=== PATIENT | female | born 1945 | race Caucasian/White ===

== ENCOUNTER → 2022-12-31 09:44 | Outpatient (CLI) | payer MEDICARE, SELFPAY ==
[2022-12-31 10:55] VITALS: PULSE 75; PULSE 80
== END ==
PROVIDERS: PCP Internal Medicine Adolescent Medicine; Visit Provider Internal Medicine Pulmonary Disease
DX: R06.09 Other forms of dyspnea (principal)
CPT/HCPCS: 94060; 94618; 94640; 94726; 94729

== ENCOUNTER 2023-01-24 11:50 | Day surgery (SDC) | payer MEDICARE, SELFPAY ==
--- NOTE | 2023-01-11 08:15 | SUR.PREOP ---
Ashli @ Dr Pete office spoke with Dr muro/t holding plavix. Per Ashli he stated to hold Plavix 5 days prior to procedure and 2 days after
[2023-01-11 10:40] VITALS: BMI 41.2
[2023-01-24 12:50] VITALS: BP 158/58; PULSE 84; RESP 18; TEMP 36.2; O2SAT 96
[2023-01-24 12:59] LABS: POC Glucose,Bedside 94 (70-110)
[2023-01-24 13:06] VITALS: O2SAT 96
--- NOTE | 2023-01-24 13:30 | HMH.SCOPE ---
Procedure: Date: 01/24/23 Patient Date of :: 1945 Procedure Performed:: Colonoscopy with polypectomy Indications:: Colon cancer screening Performing Provider:: Chintan Cantor MD Referring Provider:: Santiago Youssef Sedation:: Propofol Procedure:: After placing the patient in the left lateral decubitus position, the colonoscopy was gently inserted into the rectum and under direct visualization advanced to the cecum which was identified by transillumination in the right lower quadrant, identification of the ileocecal valve, appendiceal orifice, and cecal strap. Color, texture, mucosa, and anatomy of the colon were carefully examined with the scope. Findings:: Anal canal: normal Rectum: Two small 0.3 cm mucosal polyp identified and removed with snare Sigmoid colon: normal without polyps or inflammatory changes Descending colon: normal without polyps or inflammatory changes Splenic flexure: normal Transverse colon: normal without polyps or inflammatory changes Hepatic flexure: normal Ascending colon: normal without polyps or inflammatory changes Cecum: normal Terminal ileum: not visualized Impression: Rectal polyps x 2 Specimens:: Polyps of rectum Recommendations:: Follow up examination in about FIVE years or so, sooner if clinically indicated. Complications:: None Estimated blood obtained (mL): 0 Colonoscopy Component Colonoscopy Component Was a colonoscopy performed during today's procedure?: Yes Recommended follow up colonoscopy of at least 10 years?: No If no, follow up colonoscopy recommended in ___ years?: Five Reason for not recommending >/= 10 yr follow-up interval?: Polyps found
[2023-01-24 13:38] VITALS: BP 94/49; PULSE 86; RESP 16; TEMP 36.1; O2SAT 95
[2023-01-24 13:48] VITALS: BP 138/59; PULSE 85; RESP 17; O2SAT 94
[2023-01-24 13:58] VITALS: BP 130/64; PULSE 86; RESP 17; O2SAT 95
[2023-01-24 14:08] VITALS: BP 127/84; PULSE 85; RESP 17; O2SAT 94
--- NOTE | 2023-01-24 14:10 | EXP.ANES.CKL ---
[facility] Disclaimer: The information contained in this section may have been updated after the patient was seen, as this information can be updated by other users. Medical History Dyspnea on exertion History of COPD History of smoking 30 or more pack years History of transient ischemic attack (TIA) Surgical History (Updated 01/11/23 @ 10:32 by Lizzie Thorne RN) History of cholecystectomy History of colonoscopy History of knee replacement History of left hip replacement History of surgery on lower extremity History of tonsillectomy History of tubal ligation Family History Other Breast cancer in female Diabetes Hypertension Social History Smoking Status: Former smoker smoking status stop date: 2007 alcohol intake: never substance use type: denies use current occupational status: retired Travel in the last 8 weeks: [place] household members: family housing: house lives independently: No education level: high school service: No retirement: No caffeine: Yes special chepe needs: No agree to transfusion: No do you feel safe at home: Yes victim of physical abuse: No victim of emotional abuse: No victim of sexual abuse: No would you like helpful sources: No [facility] Anesthesia Checklist Patient Identification Patient Identification: Arm Band and Family Structural Data Admitted From: Home Planned Operative Procedure/s: colonoscopy Consent for Planned Operative Procedure(s) Verified: Yes Verified Documents: Surgical Consent and History and Physical NPO Status Verified Time NPO: 00:00 Additional verifications Patient : No Anesthesia Reactions: No Hx Blood Transfusions: No Blood Transfusion Reaction: No Cephalosporin Allergy: No Previous Colonoscopy: Yes Airway Assessment Mallampati Score:: Class II C-Spine Mobility Assessed: Yes TMJ Mobility Assessed: Yes Dentition: Good Dentition Neurological Assessment Level of Consciousness: Awake, Alert, Appropriate and Follows Commands Hx Seizures: No Numbness or tingling in extremities: No Anesthesia Plan Anesthesia Risk discussed: Yes ASA Class: III Anesthesia Type: MAC Preoperative Comments Pre-Operative Comments: Hypothyroid. COPD. Hypertension. History of Kidney stones. Diabetes.
== END 2023-01-24 14:20 | disposition home or self-care (01) ==
PROVIDERS: PCP Internal Medicine Adolescent Medicine; Visit Provider Internal Medicine Gastroenterology
PROC: 0DJD8ZZ Inspection of Lower Intestinal Tract, Via Natural or Artificial Opening Endoscopic (ICD-10-PCS; CPT 45378; principal; 2023-01-24 13:00)
DX: Z12.11 Encounter for screening for malignant neoplasm of colon (principal); D12.8 Benign neoplasm of rectum; E11.9 Type 2 diabetes mellitus without complications
CPT/HCPCS: 45385; 82962; 88305

== ENCOUNTER → 2023-02-14 12:03 | Outpatient (CLI) | payer MEDICARE, SELFPAY ==
--- NOTE | 2023-02-14 12:06 | XR_ITS ---
FINAL REPORT CLINICAL HISTORY: COPD, SOB FINDINGS: CHEST 2 VIEWS PA AND LATERAL The heart is normal in size. The mediastinum is unremarkable. There is right base opacity, favor atelectasis over pneumonia. There is no pneumothorax. IMPRESSION: Right base opacity, favor atelectasis over pneumonia. Reviewed, Interpreted and Dictated by Lloyd Alberto III, MD Transcribed by Safia Newman Authenticated and [facility]
== END ==
PROVIDERS: PCP Internal Medicine Adolescent Medicine; Visit Provider Internal Medicine Pulmonary Disease
DX: R06.02 Shortness of breath (principal)
CPT/HCPCS: 71046

== ENCOUNTER 2023-03-12 09:50 | Outpatient (RCR) | payer MEDICARE, SELFPAY | END 2023-05-20 15:00 | disposition home or self-care (01) | LOC: PT 09:50 | PROVIDERS: Visit Provider Internal Medicine Pulmonary Disease | DX: J44.9 Chronic obstructive pulmonary disease, unspecified (principal) | CPT/HCPCS: 94626 ==

== ENCOUNTER 2023-10-27 14:23 | Emergency (ER) | payer MEDICARE, SELFPAY ==
[2023-10-27 14:24] VITALS: BP 162/60; PULSE 84; RESP 18; TEMP 36.7; O2SAT 97; BMI 39.2
--- NOTE | 2023-10-27 14:40 | ED_ITS ---
<Statement entered by Crista Lowry MD - 10/27/23 15:14> I was consulted by the BARBARA, and we discussed the complexity of the problems being addressed. I approved the treatment and management plan for this patient's care in the emergency department, thus performing a substantive portion of the medical decision making. Crista Lowry MD, CYN, FACEP Discharge Plan Disposition Patient Disposition: Home, Self-Care Condition: Good Prescriptions Prescriptions: No Action clopidogrel 75 mg tablet 75 mg PO DAILY allopurinol 100 mg tablet 100 mg PO DAILY lorazepam 0.5 mg tablet 0.5 mg PO BID PRN (Reason: anxietyu) levocetirizine 5 mg tablet 5 mg PO DAILY lisinopril 40 mg tablet 40 mg PO DAILY atorvastatin 80 mg tablet 80 mg PO DAILY metoprolol succinate 100 mg tablet extended release 24 hr 100 mg PO DAILY hydrochlorothiazide 12.5 mg tablet 12.5 mg PO DAILY levothyroxine 25 mcg capsule 25 mcg PO DAILY albuterol sulfate 0.63 mg/3 mL solution for nebulization 0.63 mg inhalation Q4-6H PRN (Reason: .) magnesium 200 mg tablet 200 mg PO DAILY Rx Instructions: M,W,F Trulicity 1.5 mg/0.5 mL pen injector 1.5 mg SQ WEEKLY aspirin 81 mg tablet,delayed release (DR/EC) 81 mg PO DAILY [place] Saline 0.65 % aerosol,spray 1 spray intranasal BID PRN (Reason: .) acetaminophen [Tylenol Extra Strength] 500 mg tablet 500 mg PO Q6H PRN (Reason: .) calcium carbonate [Calcium 600] 600 mg calcium (1,500 mg) tablet 600 mg PO BID mecobalamin (vitamin B12) [B12 Active] 1,000 mcg tablet,chewable 1,000 mcg PO DAILY Anoro Ellipta 62.5-25 mcg/actuation blister with device 1 inh inhalation DAILY 90 Days Qty: 180 2RF (DME) OneTouch Ultra Test Strip See Rx Instructions .ROUTE .MEDSUPPLY Qty: 10 Patient Comments: USE 1 STRIP TO CHECK GLUCOSE TWICE DAILY Rx Instructions: As directed albuterol sulfate 90 mcg/actuation HFA aerosol inhaler inhalation Patient Comments: INHALE 2 PUFFS BY MOUTH 4 TIMES DAILY NEEDED (DME) lancets [OneTouch Delica Plus Lancet] 33 gauge misc See Rx Instructions .ROUTE .MEDSUPPLY Qty: 100 Patient Comments: USE 1 TO CHECK GLUCOSE TWICE DAILY Rx Instructions: As directed Incruse Ellipta 62.5 mcg/actuation blister with device 1 inh inhalation DAILY Referrals Follow up/Referrals: Santiago Youssef MD [Primary Care Provider] - See instructions Activity Restrictions/Add. Instructions Additional Instructions/Restrictions: I have ordered an ultrasound of your right lower extremity to rule out a blood clot. Please return to the ER as needed for any worsening signs and symptoms including fever increasing pain redness chest pain shortness of breath etc. Clinical Impressions Clinical Impression: Pain of right calf Instructions Patient Instructions: DI for Skin Abscess Discharge ED Provider: Crista Lowry General Adult HPI General Chief complaint: Skin/Abscess/Foreign Body Stated complaint: knot behind right knee Time Seen by Provider: 10/27/23 14:40 History of Present Illness HPI narrative: Patient presents for evaluation of right calf pain. Patient gives a history of having a previous DVT but only currently on Plavix. Patient states that her right lateral proximal calf is tender only mildly with extension and that she feels a knot . Patient denies trauma fever chills hemoptysis hematochezia melena nausea vomit diarrhea shortness of breath chest pain. Related Data Home Medications Medication Instructions Recorded Confirmed acetaminophen 500 mg tablet 500 mg PO Q6H PRN . 12/27/22 08/14/23 (Tylenol Extra Strength) albuterol sulfate 0.63 mg/3 mL 0.63 mg inhalation Q4-6H PRN . 12/27/22 08/14/23 solution for nebulization allopurinol 100 mg tablet 100 mg PO DAILY gout 12/27/22 08/14/23 aspirin 81 mg tablet,delayed 81 mg PO DAILY . 12/27/22 08/14/23 release atorvastatin 80 mg tablet 80 mg PO DAILY Cholesterol 12/27/22 08/14/23 calcium carbonate (Calcium 600) 600 mg PO BID Supplement 12/27/22 08/14/23 clopidogrel 75 mg tablet 75 mg PO DAILY blood thiner 12/27/22 08/14/23 dulaglutide 1.5 mg/0.5 mL 1.5 mg SQ WEEKLY . 12/27/22 08/14/23 subcutaneous pen injector ([facility] hydrochlorothiazide 12.5 mg tablet 12.5 mg PO DAILY Fluid 12/27/22 08/14/23 levocetirizine 5 mg tablet 5 mg PO DAILY . 12/27/22 08/14/23 levothyroxine 25 mcg capsule 25 mcg PO DAILY thyroid 12/27/22 08/14/23 lisinopril 40 mg tablet 40 mg PO DAILY bp 12/27/22 08/14/23 lorazepam 0.5 mg tablet 0.5 mg PO BID PRN anxietyu 12/27/22 08/14/23 magnesium 200 mg tablet 200 mg PO DAILY Supplement 12/27/22 08/14/23 mecobalamin (vitamin B12) 1,000 1,000 mcg PO DAILY Supplement 12/27/22 08/14/23 mcg chewable tablet (B12 Active) metoprolol succinate 100 mg 100 mg PO DAILY bp 12/27/22 08/14/23 tablet,extended release 24 hr sodium chloride 0.65 % nasal spray 1 spray intranasal BID PRN . 12/27/22 08/14/23 aerosol ([place] Saline) albuterol sulfate 90 mcg/actuation inhalation 08/14/23 08/14/23 aerosol inhaler blood sugar diagnostic (OneTouch #10 ea 08/14/23 08/14/23 Ultra Test strips) lancets 33 gauge (OneTouch Delica #100 ea 08/14/23 08/14/23 Plus Lancet) umeclidinium 62.5 mcg/actuation 1 inh inhalation DAILY 08/14/23 08/14/23 blister powder for inhalation (Incruse Ellipta) Previous Rx's Medication Instructions Recorded umeclidinium 62.5 mcg-vilanterol 1 inh inhalation DAILY 90 days 02/14/23 25 mcg/actuation powdr for #180 ea inhalation (Anoro Ellipta) Allergies Allergy/AdvReac Type Severity Reaction Status Date / Time No Known Allergies Allergy Verified 08/14/23 15:06 [facility] Disclaimer: The information contained in this section may have been updated after the patient was seen, as this information can be updated by other users. Medical History Chronic obstructive pulmonary disease History of transient ischemic attack (TIA) x2 right side minimal weakness History of COPD Dyspnea on exertion History of smoking 30 or more pack years Surgical History History of knee replacement left History of left hip replacement History of tonsillectomy History of tubal ligation History of surgery on lower extremity History of colonoscopy History of cholecystectomy Family History Other Breast cancer in female Diabetes Hypertension Social History Smoking Status: Former smoker smoking status stop date: 2007 alcohol intake: never substance use type: denies use current occupational status: retired Travel in the last 8 weeks: [place] household members: family housing: house lives independently: No education level: high school service: No penitentiary: No caffeine: Yes special chepe needs: No agree to transfusion: No do you feel safe at home: Yes victim of physical abuse: No victim of emotional abuse: No victim of sexual abuse: No would you like helpful sources: No ROS Obtained: Yes Systems reviewed as appropriate & no additional complaints except as documented Physical Exam General General appearance: alert and in no apparent distress Respiratory Respiratory exam: Present normal lung sounds bilaterally Cardiovascular Cardiovascular exam: Present regular rate and normal rhythm Extremities Exam Extremities exam: Present normal inspection, full ROM and tenderness (Proximal right lateral calf) Neurological Exam Neurological exam: Present alert and oriented X3 Skin Skin exam: Present warm, dry and normal color Medical Decision Making Medical Records Medical records reviewed: Yes I reviewed the patient's medical records. Jw Inquiry Pt receiving controlled substance: No Vital Signs: 10/27/23 14:24 Temperature 98.0 F Temperature Source Oral Pulse Rate [Radial] 84 Respiratory Rate 18 Blood Pressure [Right Arm] 162/60 H Blood Pressure Mean [Right Arm] 94 Blood Pressure Source [Right Arm] Automatic Cuff Blood Pressure Position [Right Arm] Sitting 02 Sat by Pulse Oximetry 97 Oxygen Delivery Method Room Air Orders (Tests/Meds): ORDERS Category Date Time Status CA venous doppler LE RT Routine Y 10/27/23 14:51 Ordered Medical Decision Narrative: In summary patient is a 77-year-old female who presents to the emergency department for evaluation of right calf pain. Patient is hemodynamically stable upon arrival, febrile. Physical exam is remarkable for slight tenderness to palpation in the lateral proximal right calf. Patient has no posterior calf tenderness no erythema no edema no palpable cords negative Homans' sign. Differential diagnosis includes iliotibial band syndrome versus DVT versus musculoskeletal strain. I had interactive discussion with the patient regarding treatment options and the patient directed decision making patient elected to do an outpatient venous Doppler tomorrow. Having said that patient is appropriate for discharge with return instructions for any worsening chest pain shortness of breath increasing pain redness etc. Critical Care Critical Care Time Critical Care Time: No
--- NOTE | 2023-10-27 14:51 | PC.NURSE ---
ELKE PARKS AT BEDSIDE
[2023-10-27 15:05] VITALS: BP 158/62; PULSE 80; RESP 18; TEMP 36.7; O2SAT 97
== END 2023-10-27 15:05 | disposition home or self-care (01) ==
PROVIDERS: Emergency Provider Student in an Organized Health Care Education/Training Program; PCP Internal Medicine Adolescent Medicine
DX: M79.661 Pain in right lower leg (principal); Z86.718 Personal history of other venous thrombosis and embolism; Z79.01 Long term (current) use of anticoagulants
CPT/HCPCS: 99282

== ENCOUNTER 2023-10-28 10:53 | Outpatient (CLI) | payer MEDICARE, SELFPAY | END 2023-10-28 23:59 | disposition home or self-care (01) | LOC: RT 10:56 | PROVIDERS: PCP Internal Medicine Adolescent Medicine; Visit Provider Student in an Organized Health Care Education/Training Program | DX: M79.604 Pain in right leg (principal); Z86.718 Personal history of other venous thrombosis and embolism | CPT/HCPCS: 93971 ==

== ENCOUNTER 2023-12-24 15:28 | Outpatient (POV) | payer MEDICARE, SELFPAY | END 2023-12-24 23:59 | disposition home or self-care (01) | LOC: SC 15:29 | PROVIDERS: PCP Internal Medicine Adolescent Medicine; Visit Provider Dermatology | DX: Z00.00 Encounter for general adult medical examination without abnormal findings (principal) ==

== ENCOUNTER 2024-03-17 09:24 | Outpatient (CLI) | payer MEDICARE, SELFPAY ==
--- NOTE | 2024-03-17 09:29 | XR_ITS ---
FINAL REPORT CLINICAL HISTORY: SOB COMPARISON: 02/14/2023 FINDINGS: Two views of the chest were obtained. The heart size and pulmonary vascularity are within normal limits. The mediastinum is normal. There are worsening bibasilar opacities, favor atelectasis over pneumonia. There is no pneumothorax. The bony thorax is intact. IMPRESSION: Worsening bibasilar opacities, favor atelectasis over pneumonia. Reviewed, Interpreted and Dictated by Lloyd Alberto III, MD Transcribed by Yumi Rodriguez Authenticated and [facility]
== END 2024-03-17 23:59 | disposition home or self-care (01) ==
LOC: RAD 09:26
PROVIDERS: PCP Internal Medicine Adolescent Medicine; Visit Provider Internal Medicine Pulmonary Disease
DX: R06.02 Shortness of breath (principal)
CPT/HCPCS: 71046

== ENCOUNTER 2024-04-06 14:51 | Outpatient (CLI) | payer MEDICARE, SELFPAY | END 2024-04-06 23:59 | disposition home or self-care (01) | LOC: RT 14:52 | PROVIDERS: PCP Internal Medicine Adolescent Medicine; Visit Provider Internal Medicine Pulmonary Disease | DX: J44.9 Chronic obstructive pulmonary disease, unspecified (principal) | CPT/HCPCS: 94762 ==

== ENCOUNTER 2024-04-24 14:28 | Outpatient (CLI) | payer MEDICARE, SELFPAY ==
--- NOTE | 2024-04-24 14:33 | XR_ITS ---
FINAL REPORT TECHNIQUE: Chest PA & Lateral CLINICAL HISTORY: Shortness of breath COMPARISON: 03/17/2024 FINDINGS: 2 views of the chest were performed. The heart size is normal. The mediastinum is within normal limits. No acute cardiopulmonary process. Linear density in the lung bases is consistent with scar, [id number]-kuyf-left. There are no pleural effusions. There is no pneumothorax. The bony thorax appears intact. IMPRESSION: No acute cardiopulmonary process. Reviewed, Interpreted and Dictated by Manas Amato MD Transcribed by Angela Henry Authenticated and [facility]
== END 2024-04-24 23:59 | disposition home or self-care (01) ==
LOC: LAB 14:30
PROVIDERS: PCP Internal Medicine Adolescent Medicine; Visit Provider Internal Medicine Pulmonary Disease
DX: R06.02 Shortness of breath (principal); R05.9 Cough, unspecified; Z87.891 Personal history of nicotine dependence; J44.9 Chronic obstructive pulmonary disease, unspecified; R04.2 Hemoptysis
CPT/HCPCS: 71046; 87070; 87205

== ENCOUNTER 2024-09-02 12:39 | Outpatient (CLI) | payer MEDICARE, SELFPAY ==
--- NOTE | 2024-09-02 12:43 | MR_ITS ---
FINAL REPORT TECHNIQUE: Multiplanar and multisequence imaging of the brain was obtained without contrast. CLINICAL HISTORY: PARESTHESIA/ VISUAL DISTURBANCE buzzing on the left side of head with tenderness blurred vision FINDINGS: Brain parenchymal: There is no mass effect or midline shift. There are moderate, periventricular and subcortical white matter changes. The cerebellum and brainstem are without acute abnormality. Ventricles: The ventricles are symmetric in size and configuration without hydrocephalus. Extra-axial spaces: No extra-axial fluid collections. Diffusion imaging: No areas of restricted diffusion to suggest acute infarct. Flow voids: Flow voids within the major intracranial vessels are preserved. Soft tissues: Soft tissues are without acute abnormality. There is a small amount of fluid in the bilateral mastoid air cells. IMPRESSION: No acute intracranial abnormality. White matter changes are favored to represent chronic small vessel ischemia. Reviewed, Interpreted and Dictated by Vivian Medina MD Transcribed by Joanie Carver Authenticated and [facility]
== END 2024-09-02 23:59 | disposition home or self-care (01) ==
LOC: RAD 12:40
PROVIDERS: PCP Internal Medicine Adolescent Medicine; Visit Provider Nurse Practitioner Family
DX: R20.2 Paresthesia of skin (principal); H53.9 Unspecified visual disturbance
CPT/HCPCS: 70551

== ENCOUNTER 2024-09-27 11:24 | Emergency (ER) | payer MEDICARE, SELFPAY ==
[2024-09-27 11:35] VITALS: BP 160/63; PULSE 76; RESP 18; TEMP 36.6; O2SAT 99; BMI 37.8
[2024-09-27] MEDS: CYCLOBENZAPRINE 10MG TABLET 5 MG PO (12:11)
[2024-09-27] MEDS: KETOROLAC 30MG/ML VIAL 15 MG IV (12:11)
[2024-09-27] MEDS: predniSONE 20MG TAB 40 MG PO (12:11)
[2024-09-27 12:12] VITALS: BP 174/65; PULSE 67; RESP 16; TEMP 36.6; O2SAT 98
[2024-09-27] MEDS: LIDOCAINE 5% TRANSDERMAL PATCH 1 EACH TD (12:12)
--- NOTE | 2024-09-27 12:14 | ED_ITS ---
Discharge Plan Disposition Patient Disposition: Home, Self-Care Chief Complaint: PAIN Prescriptions Prescriptions: New lidocaine 4 % adhesive patch,medicated 1 patch topical DAILY Qty: 5 0RF Rx Instructions: may leave on for up to 12 hrs prednisone 50 mg tablet 50 mg PO DAILY 5 Days Qty: 5 0RF Rx Instructions: Please begin 1 day after ED visit cyclobenzaprine 5 mg tablet 5 mg PO TID PRN (Reason: muscle spasm) 5 Days Qty: 15 0RF No Action clopidogrel 75 mg tablet 75 mg PO DAILY allopurinol 100 mg tablet 100 mg PO DAILY lorazepam 0.5 mg tablet 0.5 mg PO BID PRN (Reason: anxietyu) levocetirizine 5 mg tablet 5 mg PO DAILY lisinopril 40 mg tablet 40 mg PO DAILY atorvastatin 80 mg tablet 80 mg PO DAILY metoprolol succinate 100 mg tablet extended release 24 hr 100 mg PO DAILY hydrochlorothiazide 12.5 mg tablet 12.5 mg PO DAILY levothyroxine 25 mcg capsule 25 mcg PO DAILY albuterol sulfate 0.63 mg/3 mL solution for nebulization 0.63 mg inhalation Q4-6H PRN (Reason: .) magnesium 200 mg tablet 200 mg PO DAILY Rx Instructions: M,W,F Trulicity 1.5 mg/0.5 mL pen injector 1.5 mg SQ WEEKLY aspirin 81 mg tablet,delayed release (DR/EC) 81 mg PO DAILY Banks Saline 0.65 % aerosol,spray 1 spray intranasal BID PRN (Reason: .) acetaminophen [Tylenol Extra Strength] 500 mg tablet 500 mg PO Q6H PRN (Reason: .) calcium carbonate [Calcium 600] 600 mg calcium (1,500 mg) tablet 600 mg PO BID sertraline 25 mg tablet 25 mg PO DAILY (DME) OneTouch Ultra Test Strip See Rx Instructions .ROUTE .MEDSUPPLY Qty: 10 Patient Comments: USE 1 STRIP TO CHECK GLUCOSE TWICE DAILY Rx Instructions: As directed (DME) lancets [OneTouch Delica Plus Lancet] 33 gauge misc See Rx Instructions .ROUTE .MEDSUPPLY Qty: 100 Patient Comments: USE 1 TO CHECK GLUCOSE TWICE DAILY Rx Instructions: As directed cyanocobalamin (vitamin B-12) [Vitamin B-12] 1,000 mcg tablet 1,000 mcg PO DAILY Airsupra 90-80 mcg/actuation HFA aerosol inhaler 2 inh inhalation TID PRN ipratropium-albuterol 0.5 mg-3 mg(2.5 mg base)/3 mL solution for nebulization 3 ml inhalation QID PRN (Reason: shortness of breath or wheezing) 90 Days Qty: 270 3RF fluticasone propionate [Flonase Allergy Relief] 50 mcg/actuation spray,suspension 1 spray intranasal DAILY 90 Days Qty: 16 2RF Rx Instructions: administer into each nostril montelukast 10 mg tablet 10 mg PO QPM 90 Days Qty: 90 2RF azelastine 137 mcg (0.1 %) spray,non-aerosol 2 spray intranasal HS 90 Days Qty: 30 2RF Rx Instructions: administer into each nostril Trelegy Ellipta 100-62.5-25 mcg blister with device 1 inh inhalation DAILY 90 Days Qty: 90 2RF Referrals Follow up/Referrals: Santiago Youssef MD [Primary Care Provider] - See instructions Activity Restrictions/Add. Instructions Additional Instructions/Restrictions: You had no red flags today from musculoskeletal or neurologic standpoint to warrant any emergent imaging specifically an MRI. Please return with any numbness between your legs new bowel or bladder incontinence that is persistent lower extremity paralysis high fevers or other concerns. Your symptoms are most likely secondary to sciatica as discussed. I recommend you follow-up with your outpatient physician to have nonemergent imaging such as plain films and/or MRI performed. Treatment is supportive as discussed treating your symptoms alone. I would recommend you continue to take Tylenol in addition to the muscle relaxer and steroid and topical lidocaine patches that have given you. Clinical Impressions Clinical Impression: Sciatica Print Language Print Language: Irish Discharge ED Provider: Crista Lowry General Adult HPI General Chief complaint: PAIN Stated complaint: Right leg/hip pain swelling, tingling in toes Time Seen by Provider: 09/27/24 11:48 Mode of Arrival: Ambulatory Source of Information: Patient Description of Symptoms (Recalled from ER Triage Doc. by RN): pt c/o R hip pain that radiates distal to her foot ongoing x2wks. pt states the pain is 10/10 and sharp/dull in nature. pt also reports that her toes are tingling. pt denies injury. pt has not medicated for the pain today. pt states that biofreeze helps provide some relief. History of Present Illness HPI narrative: Patient is a 78-year-old female presenting today with right lower back pain radiating down her right leg. Does have some tingling in her foot. States that she has some pain that is radiating down from the sacroiliac region down the posterior lateral aspect of the right thigh. No injuries that she is aware of. No midline pain no saddle anesthesia no urinary or bladder incontinence that is new. No urinary retention. No history of personal cancer aside from skin squamous cell carcinoma. No high fevers. Has been trying Tylenol and Biofreeze at home with some relief. Related Data Home Medications ?Medication ?Instructions ?Recorded ?Confirmed acetaminophen 500 mg tablet 500 mg PO Q6H PRN . 12/27/22 08/20/24 (Tylenol Extra Strength) albuterol sulfate 0.63 mg/3 mL 0.63 mg inhalation Q4-6H PRN . 12/27/22 08/20/24 solution for nebulization allopurinol 100 mg tablet 100 mg PO DAILY gout 12/27/22 08/20/24 aspirin 81 mg tablet,delayed 81 mg PO DAILY . 12/27/22 08/20/24 release atorvastatin 80 mg tablet 80 mg PO DAILY Cholesterol 12/27/22 08/20/24 calcium carbonate (Calcium 600) 600 mg PO BID Supplement 12/27/22 08/20/24 clopidogrel 75 mg tablet 75 mg PO DAILY blood thiner 12/27/22 08/20/24 dulaglutide 1.5 mg/0.5 mL 1.5 mg SQ WEEKLY . 12/27/22 08/20/24 subcutaneous pen injector (Trulicity) hydrochlorothiazide 12.5 mg tablet 12.5 mg PO DAILY Fluid 12/27/22 08/20/24 levocetirizine 5 mg tablet 5 mg PO DAILY . 12/27/22 08/20/24 levothyroxine 25 mcg capsule 25 mcg PO DAILY thyroid 12/27/22 08/20/24 lisinopril 40 mg tablet 40 mg PO DAILY bp 12/27/22 08/20/24 lorazepam 0.5 mg tablet 0.5 mg PO BID PRN anxietyu 12/27/22 08/20/24 magnesium 200 mg tablet 200 mg PO DAILY Supplement 12/27/22 08/20/24 metoprolol succinate 100 mg 100 mg PO DAILY bp 12/27/22 08/20/24 tablet,extended release 24 hr sodium chloride 0.65 % nasal spray 1 spray intranasal BID PRN . 12/27/22 08/20/24 aerosol (Banks Saline) blood sugar diagnostic ([facility] ea 08/14/23 08/20/24 Ultra Test strips) lancets 33 gauge (OneTouch Delica #100 ea 08/14/23 08/20/24 Plus Lancet) cyanocobalamin (vitamin B-12) 1,000 mcg PO DAILY 02/27/24 08/20/24 1,000 mcg tablet (Vitamin B-12) albuterol 90 mcg-budesonide 80 2 inh inhalation TID PRN 03/17/24 08/20/24 mcg/actuation HFA aerosol inhaler (Airsupra) sertraline 25 mg tablet 25 mg PO DAILY 04/14/24 08/20/24 Previous Rx's ?Medication ?Instructions ?Recorded ipratropium 0.5 mg-albuterol 3 mg 3 ml inhalation QID PRN shortness 03/17/24 (2.5 mg base)/3 mL nebulization of breath or wheezing 90 days #270 soln mL azelastine 137 mcg (0.1 %) nasal 2 spray intranasal HS 90 days #30 09/03/24 spray mL fluticasone propionate 50 1 spray intranasal DAILY 90 days 09/03/24 mcg/actuation nasal #16 grams spray,suspension (Flonase Allergy Relief) montelukast 10 mg tablet 10 mg PO QPM 90 days #90 tabs 09/03/24 fluticasone fur. 100 mcg-umeclid 1 inh inhalation DAILY 90 days #90 09/23/24 62.5 mcg-vilant 25 mcg ea inhalat.powder (Trelegy Ellipta) cyclobenzaprine 5 mg tablet 5 mg PO TID PRN muscle spasm 5 09/27/24 days #15 tabs lidocaine 4 % topical patch 1 patch topical DAILY #5 ea 09/27/24 prednisone 50 mg tablet 50 mg PO DAILY 5 days #5 tabs 09/27/24 Allergies Allergy/AdvReac Type Severity Reaction Status Date / Time No Known Allergies Allergy Verified 09/27/24 11:45 [facility] Disclaimer: The information contained in this section may have been updated after the patient was seen, as this information can be updated by other users. Medical History Hemoptysis Chronic obstructive pulmonary disease History of transient ischemic attack (TIA) x2 right side minimal weakness History of COPD Dyspnea on exertion History of smoking 30 or more pack years Surgical History History of knee replacement left History of left hip replacement History of tonsillectomy History of tubal ligation History of surgery on lower extremity History of colonoscopy History of cholecystectomy Family History Other Breast cancer in female Diabetes Hypertension Social History Smoking Status: Former smoker smoking status stop date: 2007 alcohol intake: never substance use type: denies use current occupational status: retired Travel in the last 8 weeks: None household members: family housing: house lives independently: No education level: high school service: No retirement: No caffeine: Yes special chepe needs: No agree to transfusion: No do you feel safe at home: Yes victim of physical abuse: No victim of emotional abuse: No victim of sexual abuse: No would you like helpful sources: No Have you lived/traveled outside [place] in past 30 days?: No Contact w/someone who lives/traveled outside US past 30 days?: No Exposure to someone with infectious disease in past 14 days?: No Do you have a fever (greater than 100.4 F or 38 C)?: No Have you tested positive for COVID-19: No Exposed to someone with COVID-19 in past 14 days?: No Do you have a sore throat?: No Do you have a cough?: No Do you have any weakness?: No Do you have any diarrhea?: No Are you experiencing any unusual bleeding?: No Do you have any muscle aches/pain?: No Do you have any abdominal pain?: No Are you experiencing loss of taste or smell?: No Other Medical History Have you received the Pneumonia Vaccine: Yes ROS Obtained: Yes All systems reviewed & no additional complaints except as documented Physical Exam General General appearance: alert Respiratory Respiratory exam: Present normal lung sounds bilaterally Cardiovascular Cardiovascular exam: Present regular rate Back Exam Back 1 view image: 2 1. Tenderness off the midline in the sacroiliac region no midline tenderness no step-offs or deformities normal lower extremity strength there is a positive straight leg test on the right neurovascular intact Neurological Exam Neurological exam: Present alert and oriented X3 Medical Decision Making Medical Records Screening: Per USPSTF and CDC recommendations, given the prevalence of disease in our region, it is our hospital?s policy to screen for HIV and viral Hepatitis for all patients aged 18 and over and those with ongoing risk factors. Jw Inquiry Pt receiving controlled substance: No Vital Signs: 09/27/24 11:35 Temperature 97.9 F Temperature Source Oral Pulse Rate [Left] 76 Respiratory Rate 18 Blood Pressure [Right Arm] 160/63 H Blood Pressure Mean [Right Arm] 95 Blood Pressure Source [Right Arm] Automatic Cuff Blood Pressure Position [Right Arm] Sitting 02 Sat by Pulse Oximetry 99 Oxygen Delivery Method Room Air Orders (Tests/Meds): ED MEDICATIONS Generic Name Dose Route Start Last Admin Trade Name Freq PRN Reason Stop Dose Admin Ketorolac Tromethamine 15 mg 09/27/24 12:03 09/27/24 12:11 Ketorolac 30mg/Ml Vial IV 09/27/24 12:04 15 mg ONCE ONE Administration Discontinued Medications Generic Name Dose Route Start Last Admin Trade Name Freq PRN Reason Stop Dose Admin Cyclobenzaprine HCl 5 mg 09/27/24 12:03 09/27/24 12:11 Cyclobenzaprine 10mg Tablet PO 09/27/24 12:04 5 mg ONCE ONE Administration Ketorolac Tromethamine 30 mg 09/27/24 12:03 09/27/24 12:09 Ketorolac 30mg/Ml Vial IM 09/27/24 12:04 Not Given ONCE ONE Lidocaine 1 each 09/27/24 12:03 09/27/24 12:12 Lidocaine 5% Transdermal Patch TD 09/27/24 12:04 1 each ONCE ONE Administration Prednisone 40 mg 09/27/24 12:03 09/27/24 12:11 Prednisone 20mg Tab PO 09/27/24 12:04 40 mg ONCE ONE Administration ORDERS Category Date Time Status HIV Combo Stat Lab 09/27/24 11:48 Received Hepatitis C Ab Qual. W/ RFX Stat Lab 09/27/24 11:48 Received Medical Decision Narrative: 78-year-old with nontraumatic paraspinal lumbosacral and sacroiliac pain and tenderness radiating down the posterior aspect of the right leg no soft tissue abnormalities to suggest infection no history from trauma no red flags from a history of physical standpoint to suggest that there is any central component such as cauda equina syndrome. No indication for any emergent imaging namely x- rays or CT scans but more specifically no indication for emergent MRI as she does not have a history of physical exam suggestive that she would need emergent neurosurgical intervention. Working diagnosis is sciatica. Most likely this is from a herniated disc. She has been advised given the duration of her symptoms follow-up with primary care doctor to discuss outpatient imaging. She was given a dose of Toradol prednisone Flexeril and topical lidocaine in the ED. Scripts of all of these were sent home minus the Toradol as she is on Plavix and prolonged NSAID use in the setting of Plavix could increase risk of gastrointestinal bleeding. She has been advised to take Tylenol in addition to the prescribed medications. Return precautions emphasized. Family understands that there is no further indication for emergent diagnostic testing or evaluation or treatment. Patient discharged in stable condition. Critical Care Critical Care Time Critical Care Time: No
[2024-09-27 13:11] LABS: HIV Combo NEGATIVE (Negative)
[2024-09-27 13:19] LABS: Hepatitis C Ab Qual. W/ RFX NEGATIVE (Negative)
== END 2024-09-27 12:24 | disposition home or self-care (01) ==
PROVIDERS: Emergency Provider Student in an Organized Health Care Education/Training Program; PCP Internal Medicine Adolescent Medicine
DX: M54.41 Lumbago with sciatica, right side (principal); Z11.59 Encounter for screening for other viral diseases; Z11.4 Encounter for screening for human immunodeficiency virus [HIV]
CPT/HCPCS: 86803; 87389; 96374; 99284; J1885

== ENCOUNTER → 2024-10-07 20:20 | Outpatient (CLI) | payer MEDICARE, SELFPAY | LOC: SL 20:22 | PROVIDERS: PCP Internal Medicine Adolescent Medicine; Visit Provider Internal Medicine Pulmonary Disease | DX: G47.30 Sleep apnea, unspecified (principal) | CPT/HCPCS: 95810 ==

== ENCOUNTER 2024-10-13 08:25 | Outpatient (CLI) | payer MEDICARE, SELFPAY ==
--- NOTE | 2024-10-13 08:29 | CT_ITS ---
FINAL REPORT CLINICAL HISTORY: ACUTE RT SIDE PAIN/YRN HIP PAIN COMPARISON: None FINDINGS: Axial images through the pelvis were performed by computed tomography. Sagittal and coronal reconstruction images were performed. This study was performed with techniques to keep radiation doses as low as reasonably achievable (ALARA). Individualized dose reduction techniques using automated exposure control or adjustment of mA and/or kV according to the patient's size were employed. No fracture is identified. Postoperative changes of a left hip arthroplasty are noted, with intact hardware. No dislocation identified. Degenerative joint disease is noted in the right hip, with changes of chondrocalcinosis. No acute soft tissue abnormality. IMPRESSION: Postoperative changes of the left hip arthroplasty, with intact hardware. Degenerative changes are present in the right hip, with chondrocalcinosis. Reviewed, Interpreted and Dictated by Vivian Medina MD Transcribed by Danielle Cruz Authenticated and [facility]
== END 2024-10-13 23:59 | disposition home or self-care (01) ==
LOC: RAD 08:26
PROVIDERS: PCP Internal Medicine Adolescent Medicine; Visit Provider Internal Medicine Adolescent Medicine
DX: M54.41 Lumbago with sciatica, right side (principal); M25.551 Pain in right hip; M25.552 Pain in left hip
CPT/HCPCS: 72192

== ENCOUNTER 2024-11-05 14:00 | Outpatient (RCR) | payer MEDICARE, SELFPAY ==
--- NOTE | 2024-10-14 11:57 | HMH.PTOPEV ---
PT Outpatient Evaluation Rehab PT Outpatient Evaluation Start: 10/14/24 10:53 Freq: Status: Active Protocol: Document 10/14/24 10:53 [facility] (Rec: 10/14/24 11:56 [facility] [id number]) E-signed By Soledad Stevenson, PT Outpatient Therapy Subjective History Subjective History Pt is a 78 y/o female who reports onset of R sided low back and leg pain 4 weeks ago without known trauma or injury . Pt reports right posterior hip pain and intermittent tightness of the lateral thigh and numbness of her R toes. Pt reports she has difficulty lifting the RLE since onset of pain. Pt reports pain is aggravated by standing, walking, lifting, and stair climbing. Pt reports she recently started using a rollator walker for ambulation 2 weeks ago due to gradual worsening of pain. Pt states sometimes pain improves with leaning forward on the walker. Pt had a pelvis CT on 10/13/24 with impression of Postoperative changes of the left hip arthroplasty, with intact hardware. Degenerative changes are present in the right hip, with chondrocalcinosis. Pt reports she is scheduled to have a CT of her lumbar spine tomorrow. Pt reports she is taking Tylenol with codeine for pain relief which improves her symptoms, reports she took one this morning. Pt states she also takes a muscle relaxer at night time which helps her sleep. Medical History: L DELIA 4-5 years ago, Hx L TKA >5 years ago, Hypertension, COPD, Type II Diabetes -Slump test New diagnosis of cancer in past 12 No months? Chief Complaint Pain,Weakness Symptom Type Ache,Dull,Numbness Symptoms Relieved By Rest/Positioning Symptoms Aggravated By Standing,Physical Activity, Walking,Lifting Current Functional Limitations Lifting,Housework,Standing, Squatting,Walking,Stairs Symptom Description Constant but Variable Level of pain today (0-10) 0 Pain scale - at its best (0-10) 0 Pain scale - at its worst (0-10) 9 Lumbopelvic Eval Posture Thoracic Spine Posture Standing Position Increased Kyphosis Lumbar Spine Posture Standing Position Decreased Lordosis Assistive device Assistive Devices Rolling / Wheeled Walker Palapation tenderness bilateral lumbar spinal tenderness Yes paraspinal tenderness Yes: B lumbar PS buttock tenderness Yes: R gluteal mm Lumbar/Sacral Palpation Findings Tenderness Lumbar/Sacral Palpation Overall Comment 2/4 TTP; also R hip flexor mm Accessory Movement L-spine Vertebrae Accessory Movements Central P/A [place] that Elicit Symptoms L2 bilateral L3 bilateral L5 bilateral Range of Motion Lumbar Spine Active Flexion Range of 60 Motion (degrees) Lumbar Spine Active Extension Range of 10 Motion (degrees) Left Lumbar Spine Lateral Flexion Active 10 Range of Motion (degrees) Right Lumbar Spine Lateral Flexion 10 Active Range of Motion (degrees) Manual Muscle Test Right Knee Extension Strength Grade 5 Normal Knee Flexion Strength Grade 5 Normal Hip Flexion Strength Grade 4- Good- Hip Abduction Strength Grade 4- Good- Hip Adduction Strength Grade 4- Good- Hip Extension Strength Grade 3 Fair Ankle Dorsiflexion Strength Grade 5 Normal Left Knee Extension Strength Grade 5 Normal Knee Flexion Strength Grade 5 Normal Hip Flexion Strength Grade 4 Good Hip Abduction Strength Grade 4 Good Hip Adduction Strength Grade 4 Good Hip Extension Strength Grade 4- Good- Ankle Dorsiflexion Strength Grade 5 Normal DTR Rt Patellar 1+ Lt Patellar 2+ Altered Sensation Bilateral LE Dermatome Level L3,L5,S1 Comment decreased light touch sensation R compared to L Special Tests Hip Scouring (Quadrant) Test Negative Left,Negative Right Hip Jalil (VIKRAM) Test Negative Left,Negative Right Sciatic Nerve Tension Test Negative Left,Negative Right Unilateral Straight Leg Raise (Lasegue) Positive Right Test Oswestry Index Section 1 Pain Intensity The pain comes and goes and is severe Section 2 Personal Care (Washing,Dresing) change my way of washing or dressing in order to avoid pain Section 3 Lifting I can only lift very light weights at most Section 4 Walking I cannot walk at all without increasing pain Section 5 Sitting I can sit in any chair for as long as I like Section 6 Standing I cannot stand more than 1/2 hour without increasing pain Section 7 Sleeping I get no pain in bed Section 8 Social Life I hardly have any social life because of pain Section 9 Traveling Pain restricts me to short necessary journeys under 30 minutes Section 10 Changing Degreee of Pain My pain is gradually getting worse Score and Risk Level Oswestry Sc 30 Oswestry Risk Level Severe Disability Outpatient Therapy Assessment Impairments Problems/Impairmments Palpation Tenderness,Impaired Range of Motion,Impaired Strength,Impaired Walking, Impaired Standing,Impaired Lifting,Impaired Household Care,Impaired Stair Climbing, Impaired Incline Stepping, Impaired Stepping on Uneven Surface,Impaired Squatting, Impaired Bending,Subjective C/ O Pain,Impaired Self Care/Self Management Prognosis Rehab Potential Good Clinical Impression Consistent with Diagnosis Yes Short Term Goals Number of Weeks 3 Decrease Subjective C/O Pain Yes: Improve pain at worst to 7/10 to improve overall QOL Improve Self Care/Self Management Yes Patient to be Ind w/ HEP Yes Longterm Goals Number of Weeks 6 Increase Range of Motion Yes: Improve lumbar AROM flex to at least 80 Increase Strength Yes: Improve RLE MMT to 4-4+/5 grossly to assist with function Improve Gait Pattern without Assistive Yes: proper gait mechanics Device with LRD to decrease fall risk Improve Ability For Household Care Yes: with pain 5/10 or less Improve Oswestry Score Yes: Improve score to 23 or less to improve overall QOL Decrease Subjective C/O Pain Yes: Improve pain at worst to 5/10 to improve overall QOL Outpatient Therapy Plan of Care Treatment Plan May Include Therapeutic Exercise Including Home Yes Exercise Program Manual Therapy Techniques Yes Neuromuscular Re-education Yes Therapeutic Activities to Return to Yes Previous Functional/Work Level ADL/Self Care Education Yes Dry Needling Yes Thermal Modalities Yes Electrical Stimulation Yes Ultrasound/Phonophoresis Yes Iontophoresis Yes Massage Yes Group Therapy for Medicare Yes Eval/Re-Eval Yes Aquatic Therapy Yes Frequency Times per week 2 Duration Number of Weeks 4-6 Addendums This patient is a candidate for social No or vocational rehab? Patient/Guardian verbally acknowledges Yes understanding of treatment program and consents to further treatment? Patient/Guardian verbally acknowledges Yes understanding of diagnosis, prognosis and goals for treatment? Eval Complexity PT Charges 15844 - Low Complexity Shoulder/Elbow Eval Shoulder Objective Measurements Elbow Objective Measurements PHYSICIAN CERTIFICATION: I certify the specified therapy services for Rona Cm are required, authorized, and reviewed every 30 days.
== END 2024-11-05 23:59 | disposition home or self-care (01) ==
LOC: PT 14:00
PROVIDERS: PCP Internal Medicine Adolescent Medicine; Visit Provider Internal Medicine Adolescent Medicine
DX: M54.51 Vertebrogenic low back pain (principal); M25.551 Pain in right hip; M25.552 Pain in left hip
CPT/HCPCS: 97110; 97163

== ENCOUNTER → 2025-02-03 14:55 | Outpatient (CLI) | payer MEDICARE, SELFPAY ==
--- OUTSIDE RECORDS SUMMARY | 2016-11-23 06:14 | XMS_ITS | Continuity of Care Document ---
Author Organization [facility] Address [address] [facility] [place] [address] Phone Care Team Providers Care Chiropractic Practice Manager Name Role Phone Shashank Andino MD Unavailable Unavailable Allergies, Adverse Reactions, Alerts Substance Reaction Status Criticality No Known Allergies Active No Inform ation Medications Medication Instructions Dosage Effective Dates (start - stop) Status Comments nystatin 100,000 unit/gram topical powder apply by topical route 2 times every day to the affected area(s) 0.00 - Active Flonase Allergy Relief 50 mcg/actuation nasal spray,suspension spray 1 - 2 spray by intranasal route every day in each nostril as needed 50-100 MCG - Active lisinopril 10 mg tablet take 1 tablet by oral route every day 10 MG - Active aspirin 81 mg tablet,delayed release take 1 tablet by oral route every day 81 MG - Active atorvastatin 80 mg tablet take 1 tablet by oral route every day 80 MG - Active lorazepam 0.5 mg tablet take 1/2 TABLET AM 1 TABLET IN AFTERNOON AND 1 TABLET IN THE EVENING NEEDED - Active Plavix 75 mg tablet take 1 tablet by oral route every day 75 MG - Active Kamini Allergy 180 mg tablet take 1 tablet by oral route every day 180 MG - Active Lopressor 50 mg tablet take 1 tablet by oral route 2 times every day with meals 50 MG - Active metformin 500 mg tablet take 1 tablet by oral route 2 times every day with morning and evening meals 500 MG - Active OneTouch Delica Lancing Device kit 1 time per day in the AM - Active Generic is okay. lorazepam 0.5 mg tablet take 1 tablet by oral route every day as needed 0.5 MG - No Longer Active hydrochlorothiazide 25 mg tablet take 1 tablet by oral route 2 times every day 25 MG - No Longer Active Lopressor 50 mg tablet take 1 tablet by oral route 2 times every day with meals 50 MG - No Longer Active Procedures Procedure Date OFFICE/OUTPATIENT VISIT EST NURSE ENCOUNTER, LICENSED Advance Directives Directive Yes / No Effective Date File Name No Information Encounters Encounter Description Practice Location Reason(s) For Visit Diagnoses Date Provider Providers Copied on Encounter [facility], [address] [facility] , [place], [place], [id number], [place] tel:[phone] [facility] Hyperlipidemia, unspecifiedHype rglycemiaOther acute kidney failureGenerali zed Anxiety DisorderEssenti al (primary) hypertension 7 [facility]. [address] [place] [address], [id number], [place]. tel:[phone] OFFICE/OUTPA TIENT VISIT EST [facility], [address] [facility] [place], [place], [id number], [place] tel:[phone] [facility] hypertension (chief complaint) Essential HTN 3-201 7 [facility]. [address] [place] [address], [id number], [place]. tel:[phone] NURSE ENCOUNTER, LICENSED [facility], [address] [facility] [place], [place], [id number], [place] tel:[phone] [facility] Essential HTN 1201 7 [facility]. [address] [place] [address], [id number], [place]. tel:[phone] [facility], [address] [facility] [place], [place], [id number], [place] tel:[phone] [facility] No Information 1190 0 Conversion Conversion. . [facility], [address] [place], [place], [id number], [place] tel:[phone] [facility] No Information 0 Sina Encarnacion. [address] [place] [address], [id number], [place]. tel:[phone] Family History Family Member Type Diagnosis Age At Onset No Information Immunizations Vaccine Date Status Comments Influenza administered Source: New Imm unization Record Influenza administered Source: New Imm unization Record Influenza administered Source: New Imm unization Record Tdap administered Source: New Imm unization Record Payers Payer name Insurance type Covered democrat ID Authoriza tion(s) No Information Social History Type Description Quantity Date Captured Comments Sex Female Smoking Status No Information Chief Complaint And Reason For Visit No Information Reason For Referral Reason For Referral No Information Plan Of Treatment Date Type Action Status Goal ECG. Due on due Goal Urinalysis. Due on 17 due Goal Influenza vaccine. Due on due Goal Lipid panel. Due on 017 due Goal Mammogram. Due on due Goal Depression screening. Due on due Goal Colonoscopy. Due on 024 due Goal Zoster vaccine. Due on due Goal FOBT. Due on due Goal DEXA scan. Due on due Goal Sigmoidoscopy. Due on due Goal Td vaccine. Due on due Goal Pneumococcal vaccine. Due on due Goal Tdap. Due on due Goal Urinalysis. Due on 17 due Goal ECG. Due on due Goal Zoster vaccine. Due on due Goal Colonoscopy. Due on 017 due Goal Depression screening. Due on due Goal Mammogram. Due on due Goal Lipid panel. Due on due Goal Influenza vaccine. Due on due Goal FOBT. Due on due Goal DEXA scan. Due on due Goal Sigmoidoscopy. Due on due Goal Td vaccine. Due on 17 due Goal Pneumococcal vaccine. Due on due Goal Tdap. Due on due History Of Present Illness Encounter Date Complaint History Of Prese nt Illness hypertension Additional infor mation: pt with recent BP of 199 systolic, advice to [employer] to BID, here for follow up Functional Status Date Functional Assessmen t No Information Medications Administered Medication Instructions Dosage Effective Dates (start - stop) Status Comments lorazepam 0.5 mg tablet take 1 tablet by oral route every day as needed 0.5 MG - No Longer Active Instructions Date Instruction Additional Infor latisha No Information Assessments Type Assessment Date No Information Patient Care Teams Name Effective Dates (start - stop) Status Members No Information
== END ==
LOC: SL 14:56
PROVIDERS: PCP Internal Medicine Adolescent Medicine; Visit Provider Internal Medicine Pulmonary Disease
DX: G47.33 Obstructive sleep apnea (adult) (pediatric) (principal)
CPT/HCPCS: 94762

== ENCOUNTER 2025-03-12 16:09 | Outpatient (CLI) | payer MEDICARE, SELFPAY ==
--- OUTSIDE RECORDS SUMMARY | 2016-11-23 06:14 | XMS_ITS | Continuity of Care Document ---
Author Organization [facility] Address [address] [facility] [place] [address] Phone Care Team Providers Care Bellman Name Role Phone Shashank Andino MD Unavailable Unavailable Allergies, Adverse Reactions, Alerts Substance Reaction Status Criticality No Known Allergies Active No Inform ation Medications Medication Instructions Dosage Effective Dates (start - stop) Status Comments atorvastatin 80 mg tablet take 1 tablet by oral route every day 80 MG - Active aspirin 81 mg tablet,delayed release take 1 tablet by oral route every day 81 MG - Active lisinopril 10 mg tablet take 1 tablet by oral route every day 10 MG - Active nystatin 100,000 unit/gram topical powder apply by topical route 2 times every day to the affected area(s) 0.00 - Active Flonase Allergy Relief 50 mcg/actuation nasal spray,suspension spray 1 - 2 spray by intranasal route every day in each nostril as needed 50-100 MCG - Active lorazepam 0.5 mg tablet take [...] Diagnoses Date Provider Providers Copied on Encounter [facility], [address] [facility] , [place], [place], [id number], [place] tel:[phone] [facility] Hyperlipidemia, unspecifiedHype rglycemiaOther acute kidney failureGenerali zed Anxiety DisorderEssenti al (primary) hypertension 7 [facility]. [address] [place] [address], [id number], [place]. tel:[phone] OFFICE/OUTPA TIENT VISIT EST [facility], [address] [facility] [place], [place], [id number], [place] tel:[phone] [facility] hypertension (chief complaint) Essential HTN 3-201 7 [facility]. [address] [place] [address], [id number], [place]. tel:[phone] NURSE ENCOUNTER, LICENSED [facility], [address] [facility] [place], [place], [id number], [place] tel:[phone] [facility] Essential HTN 1201 7 [facility]. [address] [place] [address], [id number], [place]. tel:[phone] [facility], [address] [facility] [place], [place], [id number], [place] tel:[phone] [facility] No Information 1190 0 Conversion Conversion. . [facility], [address] [place], [place], [id number], [place] tel:[phone] [facility] No Information 0 Sina Encarnacion. [address] [place] [address], [id number], [place]. tel:[phone] Family History Family Member Type Diagnosis Age At Onset No Information Immunizations Vaccine Date Status Comments Influenza administered Source: New Imm unization Record Influenza administered Source: New Imm unization Record Influenza administered Source: New Imm unization Record Tdap administered Source: New Imm unization Record Payers Payer name Insurance type Covered republican ID Authoriza tion(s) No Information Social History [...] recent BP of 199 systolic, advice to [employer] to BID, here for follow up Functional [...]
--- OUTSIDE RECORDS SUMMARY | 2025-03-12 16:11 | XMS_ITS | Patient Health Record ---
Author Organization [facility] Address [address] [id number] Care Team Providers Care Private Detective Name Role Phone Namrata Jimenes Primary Care Provider Allergies Allergen (clinical drug ingredient) Drug/Non Drug Allergy documented on EMR Reaction Allergy Type Onset Date Status oxycodone OxyContin Unknown Drug Allergy Active Reason For Referral No Information Medications Medication SIG (Take, Route, Frequency, Duration) Notes Start Date End Date Status Trelegy Ellipta 100-62.5-25 MCG/INH Aerosol Powder Breath Activated 1 puff Inhalation Once a day Pulmonology Active Levothyroxine Sodium 25 MCG Tablet 1 tablet in the morning on an empty stomach Orally Once a day; Duration: 90 days 12/14/2020 Active ProAir HFA 108 (90 Base) MCG/ACT Aerosol Solution 2 puffs as needed Inhalation every 6 hrs; Duration: 90 days Pulmonology Active LORazepam 0.5 MG Tablet 1 tablet as need ed Orally Twice a day; Duration: 30 days 09/10/2022 Active Levocetirizine Dihydrochloride 5 MG Tablet 1 tablet Orally Once a day; Duration: 90 days Active Magnesium 200 MG Tablet 1 tablet with a meal 3 times a week Orally Once a day; Duration: 90 days 12/23/2021 Active Vitamin B-12 1000 MCG Tablet 1 tablet Orally Once a day; Duration: 90 days 08/01/2022 Active Trulicity 1.5 MG/0.5ML Solution Pen-injector as directed Subcutaneous weekly; Duration: 90 days 03/31 - Increase 1.5mg 12/21/2021 Active Atorvastatin Calcium 80 MG Tablet 1 tablet at bedtime Orally Once a day Active Lancets - Miscellaneous 1 lancet with meter twjce a day; Duration: 30 days Dx: E11.42 03/03/2018 Active Calcium + D3 600-200 MG-UNIT Tablet 2 tablets with a meal Orally Once a day; Duration: 90 days 12/25/2018 Active Blood Glucose Test - Strip One touch ultra test strep 1 strip In Vitro daily; Duration: 90 days E11.42 08/04/2018 Active Aspir-81 81 MG Tablet Delayed Release 1 tablet Orally Once a day Active Allopurinol 100 MG Tablet 1 tablet Orall y Once a day; Duration: 90 days [facility] Active Oxygen 2 liters Active Fluticasone Propionate 50 MCG/ACT Suspension 1 spray in each nostril Nasally Once a day; Duration: 90 days Active Lisinopril 40 MG Tablet 1 tablet Orally Once a day; Duration: 90 days Active Metoprolol Succinate ER 100 MG Tablet Extended Release 24 Hour 1 tablet Orally Once a day; Duration: 90 days Active Clopidogrel Bisulfate 75 MG Tablet 1 tablet Orally Once a day; Duration: 90 days Active hydroCHLOROthiazide 12.5 MG Tablet 1 tablet in the morning Orally Once a day; Duration: 90 days 12/13/2020 Active predniSONE 20 MG Tablet 2 tablets Orally Once a day; Duration: 5 days 09/11/2022 Active Ipratropium-Albuterol 0.5-2.5 (3) MG/3ML Solution 3 ml as needed Inhalation every 6 hrs; Duration: 30 days PRN 09/29/2018 Active Immunizations Vaccine Route Administration Date Status Comme nts Flulaval Quadravalient IM Intramuscular 04/02/2018 Adminis tered Flulaval Quadravalient IM Intramuscular 04/06/2019 Adminis tered Fluzone High Dose IM Intramuscular 04/13/2020 Administered Fluzone High Dose IM Intramuscular 04/18/2021 Administered Fluzone High Dose IM Intramuscular 03/26/2022 Administered Influenza, seasonal, injectable, preservative free, 3 yrs and above Unknown 02/27/2017 Administered (IMM) Moderna BiValent Booster 18+ IM Intramuscular 04/11/2022 Administered Moderna Covid-19 Vaccine Unknown 07/14/2020 Administere d Moderna Covid-19 Vaccine Unknown 08/11/2020 Administere d Moderna Covid-19 Vaccine IM Intramuscular 12/27/2021 Admin istered Pneumo 23 Unknown 03/12/2005 Administered Pneumo 23 IM Intramuscular 12/21/2021 Administered Tdap Unknown 07/11/2017 Administered Social History Tobacco Use: Social History Observation Description Date Details (start date - stop date) Former Smoker NA - NA Social History Health Maintenance Social Info Question Answer Notes Dexa Scan Date of last exam 01/29/2022 Results Abnormal Osteopenia Covid-19 Vaccine Which vaccine received Moderna Date of 1st dose Date of 2nd dose What vaccine was received for the booster Modern a Date of Booster dose What vaccine was received for the 2nd booster? M oderna Date of 2nd Booster 04/18/2022 Flu Vaccine Received Pap Smear Date of the last PAP Smear D eclined 04/02/18 Colonoscopy Date of last colonoscopy 10/23/2013 Results Normal Tdap Date of last Tdap 07/15/2017 Pneumovax Received Dilated Eye Exam Date of Last exam 02/10/2019 Results Normal Mammogram Date of last mammogram 01/29/2022 Results Normal Drugs/Alcohol: Social Info Question Answer Notes Alcohol Screen (Audit-C) Did you have a drink containing alcohol in the past year? No Points 0 Interpretation Negative Drugs Have you used drugs other than those for medical reasons in the past 12 months? No Caffeine Intake: more than 4 cups per day Tobacco Use: Social Info Question Answer Notes Tobacco Use/Smoking Are you a former smoker How long has it been since you last smoked? 5-10 years Additional Findings: Tobacco Non-User Current no n-smoker Tobacco use other than smoking: Are you an other tobac co user? No Problems Problem Type SNOMED Code ICD Code Onset Dates Problem Status W/U Status Risk Notes Problem Information temporarily unavailable Type 2 diabetes mellitus without complications (E11.9) Active confirmed Problem Information temporarily unavailable Type 2 diabetes mellitus without complications (E11.9) Active confirmed Problem Information temporarily unavailable MIGUEL ÁNGEL (generalized anxiety disorder) (F41.1) Active confirmed Problem Information temporarily unavailable PAD (peripheral artery disease) (I73.9) Active confirmed Problem Information temporarily unavailable Hypothyroidism (acquired) (E03.9) Active confirmed Problem Information temporarily unavailable Constipation, unspecified constipation type (K59.00) Active confirmed Problem Information temporarily unavailable Morbid obesity (E66.01) Active confirmed Problem Information temporarily unavailable PVD (peripheral vascular disease) (I73.9) Active confirmed Problem Information temporarily unavailable Medicine refill (Z76.0) Active confirmed Problem Information temporarily unavailable Former smoker (Z87.891) Active confirmed Problem Information temporarily unavailable 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) Active confirmed Problem Information temporarily unavailable Stage 3 severe COPD by GOLD classification (J44.9) Active confirmed Problem Information temporarily unavailable Chronic obstructive pulmonary disease with (acute) lower respiratory infection (J44.0) Active confirmed Problem Information temporarily unavailable Squamous cell skin cancer (C44.92) Active confirmed Problem Information temporarily unavailable Gouty arthritis (M10.9) Active confirmed Problem Information temporarily unavailable Squamous cell carcinoma of skin (C44.92) Active confirmed Problem Information temporarily unavailable Overweight (E66.3) Active confirmed (FERNANDO)E66.3:Overw eight Problem Information temporarily unavailable Tinea corporis (B35.4) Problem resolved confirmed (FERNANDO)B35.4:Tinea corporis Problem Information temporarily unavailable Impacted cerumen, bilateral (H61.23) Problem resolved confirmed (FERNANDO)H61.23:Hear ing loss due to cerumen impaction, bilateral Problem Information temporarily unavailable Calculus of kidney (N20.0) Problem resolved confirmed (FERNANDO)N20.0:Right nephrolithiasis Problem Information temporarily unavailable Acute bronchitis, unspecified organism (J20.9) Problem resolved confirmed Problem Information temporarily unavailable Left hip pain (M25.552) Problem resolved confirmed Problem Information temporarily unavailable Acute maxillary sinusitis, recurrence not specified (J01.00) Problem resolved confirmed Problem Information temporarily unavailable Contact dermatitis, unspecified contact dermatitis type, unspecified trigger (L25.9) Problem resolved confirmed Problem Information temporarily unavailable Vitamin D deficiency, unspecified (E55.9) Active confirmed (FERNANDO)E55.9:Vitam in D deficiency Problem Information temporarily unavailable Anxiety disorder, unspecified (F41.9) Active confirmed (FERNANDO)F41.9:Anxie ty Problem Information temporarily unavailable Carpal tunnel syndrome, right upper limb (G56.01) Active confirmed (FERNANDO)G56.01:Carp al tunnel syndrome of right wrist Problem Information temporarily unavailable Essential (primary) hypertension (I10) Active confirmed (FERNANDO)I10:Hyperte nsion, essential Problem Information temporarily unavailable 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) Active confirmed (FERNANDO)I63.10:Cere brovascular accident (CVA) due to embolism of precerebral artery Problem Information temporarily unavailable Other seasonal allergic rhinitis (J30.2) Active confirmed (FERNANDO)J30.2:Seaso nal allergic rhinitis, unspecified trigger Problem Information temporarily unavailable Environmental and seasonal allergies (J30.89) Active confirmed Problem Information temporarily unavailable Venous stasis dermatitis of left lower extremity (I87.2) Active confirmed Problem Information temporarily unavailable COPD (chronic obstructive pulmonary disease) with chronic bronchitis (J44.9) Active confirmed Problem Information temporarily unavailable Type 2 diabetes mellitus with diabetic polyneuropathy (E11.42) Active confirmed (FERNANDO)E11.42:Type 2 diabetes mellitus with diabetic polyneuropathy, without long-term current use of insulin Problem Information temporarily unavailable Mixed hyperlipidemia (E78.2) Active confirmed (FERNANDO)E78.2:Mixed hyperlipidemia Plan Of Treatment No Information Insurance Providers Payer Name Payer Address Payer Phone Subscriber Number Group Number Insured Name Patient Relationship to Insured Coverage Start Date Coverage End Date [employer] Medicare [address] [place] [address] [id number] BEBO KELLY Self - patient is the insured 0 Medications Administered Medication Instructions Date of Administration Dosage Notes Ceftriaxone 250mg 10/17/2021 1 g Decadron 1mg 09/24/2018 6 mg Decadron 1mg 10/17/2021 8 mg Decadron 1mg 09/11/2022 8 mg Toradol 15mg 09/11/2022 60 mg Vitamin B12 08/02/2022 1 mL Medical (General) History Medical History History ICD Code Squamous cell skin cancer C44.92 Type 2 diabetes mellitus with diabetic p olyneuropathy E11.42 Essential (primary) hypertension I10 Mixed hyperlipidemia E78.2 Vitamin D deficiency E55.9 Anxiety F41.9 Carpal tunnel syndrome, right upper limb G56.01 Stage 3 severe COPD by GOLD classificati on J44.9 Cerebral infarction due to embolism of u nspecified precerebral artery I63.10 Seasonal allergic rhinitis, unspecified trigger J30.2 Calculus of kidney (resolved 08/11/2019) O + blood type ([facility] 10/2018) noted from lab results Surgical History Surgery Date(Month/Year) Hemorrhoidectomy Cholecystectomy Cosmetic Surgery Arthroscopy of Knee Arthroscopic Ankle Surgery - Both Tonsillectomy Tubal ligation Left hip replacement 10/26 Hospitalization History Reason Date(Month/Year) [facility] Chest pain 12/2019 Left Hip replacement - Pt has O + blood type 10/26
--- NOTE | 2025-03-12 16:14 | XR_ITS ---
FINAL REPORT CLINICAL HISTORY: SWELLING/PAIN IN LEFT FINGERS, no known trauma FINDINGS: LEFT HAND Three views were obtained. There is no fracture or dislocation. There is moderately advanced DIP and PIP joint space narrowing as well as the first interphalangeal joint. No soft tissue abnormality is identified. IMPRESSION: Moderately advanced osteoarthritis. Reviewed, Interpreted and Dictated by Manas Amato MD Transcribed by Safia Newman Authenticated and [facility]
== END 2025-03-12 23:59 | disposition home or self-care (01) ==
LOC: RAD 16:09
PROVIDERS: PCP Internal Medicine Adolescent Medicine
DX: M19.042 Primary osteoarthritis, left hand (principal); R60.9 Edema, unspecified
CPT/HCPCS: 73130